=== PATIENT | female | born 1975 | race Caucasian/White ===

== ENCOUNTER → 2017-05-28 | Outpatient (CLI) | payer OTHER ==
--- NOTE | 2017-05-29 10:23 | RAD ---
EXAM DESCRIPTION: Wrist,Right 3 Views CLINICAL HISTORY: 41 years Female, WRIST PAIN COMPARISON: None. FINDINGS: 3 views of the right wrist show no acute fracture or malalignment. There is no joint space narrowing or ulnar variance. No radiopaque foreign body or soft tissue gas. No focal bone lesion. IMPRESSION: Negative exam. Electronically signed by: Brayden Castro MD 05/29/2017 10:22 AM CDT Workstation: [id number]
--- NOTE | 2017-05-29 10:27 | RAD ---
EXAM DESCRIPTION: Wrist,Left 3 Views CLINICAL HISTORY: 41 years Female, WRIST PAIN COMPARISON: None. FINDINGS: 3 views of the left wrist show no acute fracture or malalignment. There is no joint space narrowing. No focal bone lesion or ulnar variance. Soft tissue calcification along the lateral aspect of the left wrist may be of vascular origin. IMPRESSION: No apparent abnormality to explain wrist pain. Probable vascular calcification laterally, less likely chondrocalcinosis. Electronically signed by: Brayden Castro MD 05/29/2017 10:26 AM CDT Workstation: [email or web address]
== END ==
LOC: RAD 14:23
PROVIDERS: ATTEND Orthopaedic Surgery
DX: M25.531 Pain in right wrist (principal); M25.532 Pain in left wrist

== ENCOUNTER → 2018-02-24 | Outpatient (CLI) | payer BC ==
--- NOTE | 2018-02-24 13:21 | US ---
EXAM DESCRIPTION: Breast,Right: Ultrasound CLINICAL HISTORY: 42 yearsFemaleBREAST LUMP. Upper outer quadrant right breast. Palpable for approximately 2 years but now enlarging. Bilateral breast augmentation. Palpable. COMPARISON: Digital diagnostic 3-D tomosynthesis mammography bilateral breasts on this visit. TECHNIQUE: Transcutaneous scanning of the upper outer quadrant of the right breast utilizing two-dimensional and Doppler modes. Scanning performed by the leaf tinner and Dr. Triana. FINDINGS: Scanning at the 1100 clock position of the right breast, 4 cm from the nipple. Palpable with the transducer. Hypoechoic solid mass with slightly lobulated and irregular margins with minimal vascularity. There may be internal micro-calcifications. Dimensions are 1.9 x 1.7 cm with parallel orientation and mostly posterior acoustic enhancement. No other discrete solid mass or cyst. No parenchymal edema or large calcifications. No overlying skin changes. Implant border where seen appears intact. IMPRESSION: 1. BI-RADS CATEGORY: 4 - SUSPICIOUS. SUB - CATEGORY 4B: MODERATE SUSPICION FOR MALIGNANCY. 2. Please refer to bilateral diagnostic 3-D tomosynthesis mammographic examination and report on this visit. The FINDINGS and the FOLLOW-UP plan were reviewed in person with the patient after the examination. Written communication explaining the IMPRESSION and FOLLOW-UP will be mailed to the patient and referring care provider. CRITICAL COMMUNICATION: The critical value was discussed directly by phone with Ms. Lilly Helms, nurse practitioner at approximately 1220 hours, on February 24, 2018. Electronically signed by: Rei Triana MD 02/24/2018 1:20 PM CDT
--- NOTE | 2018-02-24 13:21 | MAM ---
EXAM DESCRIPTION: 3D Diagnostic, Bilateral: Digital Mammography CLINICAL HISTORY: 42 yearsFemaleBREAST LUMP . Palpable mass upper outer right breast for 2 years but is enlarging. Minimally tender. Remote family history of breast cancer. No HRT. Bilateral breast augmentation.. COMPARISON: None.. Targeted right breast ultrasound following this examination. TECHNIQUE: Bilateral CC LM MLO projection full-field images, 3-D tomosynthesis digital mammographic technique, with Sandro technique. Also bilateral synthesized CC MLO LM full-field images, with Sandro technique. Bilateral 2-D digital CC, MLO, and LM implant images. CAD on 2-D imaging only. FINDINGS: The breast parenchymal density pattern is: Extremely dense breast tissue, which lowers the sensitivity of mammography. No skin thickening or nipple retraction skin marker at approximately the 1100 clock position of the middle third of the right breast. Mass density with minimally spiculated and lobulated margins approximately 2 x 1.5 cm in the upper-outer quadrant of the middle third of the right breast, approximately 6 cm from the nipple. Best seen on the MLO and LM implant displacement images. Skin marker is noted nearby. Small microcalcifications within the mass density. Bilateral subpectoral saline implants. Implant capsules appear intact where seen. No focal, stellate mass or density, focal asymmetry , and no suspicious microcalcifications left breast. ULTRASOUND: Scanning at the 1100 clock position of the right breast, 4 cm from the nipple. Palpable with the transducer. Hypoechoic solid mass with slightly lobulated and irregular margins with minimal vascularity. There may be internal micro-calcifications. Dimensions are 1.9 x 1.7 cm with parallel orientation and mostly posterior acoustic enhancement. No other discrete solid mass or cyst. No parenchymal edema or large calcifications. No overlying skin changes. Implant border where seen appears intact. IMPRESSION: 1. BI-RADS Category 4: SUSPICIOUS - Subcategory 4B: Moderate Suspicion For Malignancy. 2. Tissue diagnosis is recommended if there are no clinical contraindications. The FINDINGS and follow up were discussed in person with the patient following the examination. Written communication explaining the IMPRESSION and follow-up, will be mailed to the patient and referring health care provider. CRITICAL COMMUNICATION: The critical value was discussed directly by phone with Ms. Lilly Helms, Registered nurse practitioner at approximately 1220 hours, on February 24, 2018. Electronically signed by: Rei Triana MD 02/24/2018 1:20 PM CDT
== END ==
LOC: MAMMO 11:05
PROVIDERS: ATTEND Nurse Practitioner Acute Care
DX: N63.11 Unspecified lump in the right breast, upper outer quadrant (principal)
CPT/HCPCS: 76641; 77066; G0279

== ENCOUNTER → 2018-02-26 | Outpatient (CLI) | payer BC ==
--- NOTE | 2018-02-26 13:11 | OP ---
DATE OF PROCEDURE: 02/26/18 PREOPERATIVE DIAGNOSIS: 1. Right breast mass. POSTOPERATIVE DIAGNOSIS: 1. Right breast mass. PROCEDURE: 1. Sonographically guided needle core biopsy, right breast mass. SURGEON: Boston Rapp MD. CARAMEL CANDY MAKER: None. ANESTHESIA: Local infiltration of 1% lidocaine. INDICATION: The patient is a 42-year-old female who has had a growing mass in her right breast for some time. It is somewhat tender, it is mobile, quite close to the skin, but in no way seems to be attached to the skin currently. On ultrasound, it is showing to be solid with irregular margins, but does not shadow. She as brought to the Ultrasound suite today for biopsy. FINDINGS: Three good cores were taken with good positioning of the biopsy needle by ultrasound. PROCEDURE: The patient was laid in the supine position. The right arm was extended. The right breast was examined and the lesion was identified. The breast medial to the sono wand was prepped with Betadine. Local infiltration of anesthesia was obtained with 1%lidocaine and stab wound was made with a 15 blade. At this point, the path between the stab wound and the mass was infiltrated with local anesthesia and then three passes were made with the biopsy needle. Good cores were taken. Hemostasis was obtained with pressure and a single suture of 4-0 Prolene. Sterile pressure dressing was applied. The patient tolerated the procedure well. Estimated blood loss less than 10 mL. #[id number] [facility]
--- NOTE | 2018-03-02 09:42 | US ---
EXAM DESCRIPTION: Biopsy/Needle Guidance: Ultrasound. CLINICAL HISTORY: 42 years Female RT BREAST MASS COMPARISON: Diagnostic ultrasound of the right breast and diagnostic 3-D tomosynthesis digital mammography on February 24, 2018. TECHNIQUE: The procedure was performed by Dr. Rapp. Repeat ultrasound localized the lesion at the 1100 clock position of the right breast 4 cm from the nipple.. Sterile preparation. Sterile ultrasound guidance during needle passes. FINDINGS: Multiple images show echogenic needle within the lesion including orthogonal image. IMPRESSION: Successful, ultrasound-guided, needle core biopsy of right breast mass. Adequate core samples were obtained. Pathology examination at remote facility, results pending. Electronically signed by: Rei Triana MD 03/02/2018 9:40 AM CDT
== END ==
LOC: US 11:42
PROVIDERS: ATTEND Surgery
DX: N63.11 Unspecified lump in the right breast, upper outer quadrant (principal)

== ENCOUNTER → 2018-07-07 | Outpatient (CLI) | payer BC ==
--- NOTE | 2018-07-08 09:12 | RAD ---
EXAM DESCRIPTION: KUB CLINICAL HISTORY: constipation COMPARISON: None Available. TECHNIQUE: KUB FINDINGS: Mass effect is seen in the pelvis. This could be urinary bladder or another mass above the bladder. Correlate with CT if indicated. Bowel loops contain air but do not appear pathologically distended. Fecal burden is minimal. Bones are unremarkable. IMPRESSION: Mass effect in the pelvis. See above. Electronically signed by: Jonny Monzon MD 07/08/2018 9:11 AM CDT
--- NOTE | 2018-07-08 13:25 | US ---
EXAM DESCRIPTION: Bladder CLINICAL HISTORY: 42 years Female, bladder distention COMPARISON: None. FINDINGS: Multiple images are labeled bladder and show large lucent fluid filled structure which could be the bladder or a large pelvic cystic lesion. Low-level echoes are seen dorsally which could be artifactual or may represent sediment in the posterior aspect. The cystic structure presumed to be the bladder measures 14.7 x 10.3 x 17 cm. This would indicate a bladder volume of 1348 mL which is quite increased. Repeat images could be obtained after the bladder is emptied with a Clay catheter to confirm that this is in fact the bladder. Alternatively CT or MRI could be performed. IMPRESSION: Markedly distended urinary bladder versus cystic lesion in the pelvis. Additional imaging is recommended for clarification. Electronically signed by: Jonny Monzon MD 07/08/2018 1:23 PM CDT
== END ==
LOC: RAD 19:17
PROVIDERS: ATTEND Family Medicine
DX: K59.01 Slow transit constipation (principal); R14.0 Abdominal distension (gaseous)

== ENCOUNTER → 2018-07-14 | Outpatient (CLI) | payer BC | LOC: GMAJ 12:17 | PROVIDERS: ATTEND Family Medicine | DX: R50.9 Fever, unspecified (principal) ==

== ENCOUNTER → 2018-08-13 | Outpatient (CLI) | payer BC | LOC: LAB.O 09:41 | PROVIDERS: ATTEND Family Medicine | DX: N30.00 Acute cystitis without hematuria (principal) ==